=== PATIENT | female | born 1995 | race Caucasian/White ===

== ENCOUNTER 2017-03-28 06:18 | Emergency (ER) | payer OTHER ==
[~2017-03-28] VITALS: Ht 165.1 cm; Wt 86.5 kg
[~2017-03-28 06:18] MED LIST: FERR325T18 PO; IBUP-1222 PO; OXYC-302 PO; PREN1TAB27 PO
[2017-03-28 07:04] VITALS: BP 133/78
== END 2017-03-28 08:57 | disposition home or self-care (01) ==
LOC: ED 08:31
DX: G89.29 Other chronic pain (principal); R51 Headache
CPT/HCPCS: 70450; 99284

== ENCOUNTER 2020-09-25 08:49 | Emergency (ER) | payer OTHER ==
[~2020-09-25] VITALS: Ht 162.6 cm; Wt 108.9 kg
[~2020-09-25 08:49] MED LIST changes: -OXYC-302 PO; +OXYC1TAB14 PO
[2020-09-25] MEDS ORDERED: ONDANSETRON 2MG/ML, 2ML ONE (09:18)
[2020-09-25] MEDS ORDERED: SODIUM CHLORIDE FLUSH 10ML SYR IVF ONE (09:30)
[2020-09-25] MEDS ORDERED: ONDANSETRON 2MG/ML, 2ML IVPush ONE (09:30)
[2020-09-25] MEDS ORDERED: MECLIZINE CHEWABLE 25 MG TAB PO ONE (09:30)
[2020-09-25] MEDS ORDERED: SODIUM CHLORIDE 0.9% 1,000ML IVBOLUS ONE (09:30)
--- NOTE | 2020-09-25 09:33 | NUR ---
First contact with pt. Pt reports waking up this morning with c/o dizziness and palpitations. Pt currently 31 weeks , . Pt denies pain or any issues with at this time. Pt placed in gown and positioned for comfort in bed. Continuous heart, oxygen and BP monitors applied, all safety measures observed.
[2020-09-25] MEDS ORDERED: MECLIZINE CHEWABLE 25 MG TAB ONE (09:52)
--- NOTE | 2020-09-25 10:06 | NUR ---
Pt resting in bed looking at her phone,
--- NOTE | 2020-09-25 10:41 | NUR ---
Pt resting in bed with eyes closed, resp even and unlabored, NADN.
[2020-09-25 11:07] VITALS: BP 103/57
== END 2020-09-25 11:09 | disposition home or self-care (01) ==
LOC: ED 09:41
DX: O26.893 Other specified pregnancy related conditions, third trimester (principal); R42 Dizziness and giddiness; R00.2 Palpitations; R00.0 Tachycardia, unspecified; G43.909 Migraine, unspecified, not intractable, without status migrainosus; Z3A.31 31 weeks gestation of pregnancy
CPT/HCPCS: 93005; 96361; 96374; 99283; J2405; J7030

== ENCOUNTER 2020-10-28 12:58 | Outpatient (CLI) | payer OTHER ==
[~2020-10-28] VITALS: Ht 162.6 cm; Wt 118.0 kg
[2020-10-28] MEDS ORDERED: ACETAMINOPHEN 325 MG TABLET ONE (13:25)
[2020-10-28] MEDS ORDERED: PLEASE ENTER HEIGHT AND WEIGHT MC SCH (13:30)
[2020-10-28] MEDS ORDERED: ACETAMINOPHEN 325 MG TABLET PO PRN (13:30)
[2020-10-28 13:35] LABS: BASOPHILS % (AUTO) 1 % (0-1); EOSINOPHILS % (AUTO) 1 % (1-7); LYMPHOCYTES % (AUTO) 17 % (22-44); MEAN CORPUSCULAR HEMOGLOBIN 30.1 pg (27.0-34.8); MEAN CORPUSCULAR HGB CONC 34.6 g/dL (32.4-35.8); MEAN PLATELET VOLUME 7.7 fL (7.4-10.4); MONOCYTES % (AUTO) 4 % (2-9); NEUTROPHILS % (AUTO) 79 % (42-75); PLATELET COUNT 243 x10^3/uL (130-400); RED BLOOD COUNT 3.73 x10^6/uL (3.82-5.3); RED CELL DISTRIBUTION WIDTH 13.1 % (9.6-15.2)
[2020-10-28 13:47] LABS: ALANINE AMINOTRANSFERASE 15 U/L (12-78); ALBUMIN 2.5 g/dL (3.4-5.0); ANION GAP 6 mmol/L (5-15); CALCIUM 8.6 mg/dL (8.5-10.1); CHLORIDE 108 mmol/L (98-107); CREATININE 0.73 mg/dL (0.55-1.02)
[2020-10-28 13:54] LABS: ALKALINE PHOSPHATASE 112 U/L (45-117); BILIRUBIN,TOTAL 0.4 mg/dL (0.2-1.0); TOTAL PROTEIN 6.1 g/dL (6.4-8.2)
[2020-10-28 14:04] LABS: MICROSCOPIC INDICATED
[2020-10-28 14:14] LABS: CREATININE,URINE RANDOM 59.2 mg/dL
== END 2020-10-28 14:43 | disposition home or self-care (01) ==
LOC: LDOP 12:58
PROVIDERS: ATTEND Obstetrics & Gynecology
DX: O16.3 Unspecified maternal hypertension, third trimester (principal); Z3A.35 35 weeks gestation of pregnancy
CPT/HCPCS: 36415; 59025; 80053; 81001; 82570; 83615; 84156; 84550; 85025

== ENCOUNTER → 2020-11-02 | Outpatient (CLI) | payer OTHER | END | disposition home or self-care (01) | LOC: CFH 08:36 | PROVIDERS: ATTEND Internal Medicine Cardiovascular Disease | DX: O00.01 Abdominal pregnancy with intrauterine pregnancy (principal); R42 Dizziness and giddiness; Z3A.00 Weeks of gestation of pregnancy not specified | CPT/HCPCS: 93306; 93356 ==

== ENCOUNTER 2020-11-05 13:44 | Outpatient (CLI) | payer OTHER ==
[~2020-11-05] VITALS: Ht 162.6 cm; Wt 112.7 kg
[2020-11-05 14:23] VITALS: BP 121/82
[2020-11-05] MEDS ORDERED: BUTALB/APAP/CAFFEINE 50MG/325MG/40MG PO PRN (14:30)
[2020-11-05 14:53] LABS: ALANINE AMINOTRANSFERASE 15 U/L (12-78); ALBUMIN 2.4 g/dL (3.4-5.0); ANION GAP 8 mmol/L (5-15); BASOPHILS % (AUTO) 0 % (0-1); CALCIUM 9.5 mg/dL (8.5-10.1); CHLORIDE 108 mmol/L (98-107); CREATININE 0.78 mg/dL (0.55-1.02); EOSINOPHILS % (AUTO) 0 % (1-7); LYMPHOCYTES % (AUTO) 19 % (22-44); MEAN CORPUSCULAR HEMOGLOBIN 29.5 pg (27.0-34.8); MEAN CORPUSCULAR HGB CONC 34.2 g/dL (32.4-35.8); MEAN PLATELET VOLUME 7.9 fL (7.4-10.4); MONOCYTES % (AUTO) 7 % (2-9); NEUTROPHILS % (AUTO) 74 % (42-75); PLATELET COUNT 255 x10^3/uL (130-400); RED BLOOD COUNT 3.74 x10^6/uL (3.82-5.3); RED CELL DISTRIBUTION WIDTH 13.1 % (9.6-15.2)
[2020-11-05 14:55] LABS: ALKALINE PHOSPHATASE 125 U/L (45-117); BILIRUBIN, DIRECT < 0.1 mg/dL (0.1-0.2); BILIRUBIN,TOTAL 0.3 mg/dL (0.2-1.0); TOTAL PROTEIN 6.2 g/dL (6.4-8.2)
[2020-11-05 15:05] LABS: CREATININE,URINE RANDOM 54.2 mg/dL
[2020-11-05 15:25] LABS: MICROSCOPIC INDICATED
== END 2020-11-05 16:05 | disposition home or self-care (01) ==
LOC: LDOP 13:44
PROVIDERS: ATTEND Obstetrics & Gynecology
DX: O13.3 Gestational [pregnancy-induced] hypertension without significant proteinuria, third trimester (principal); Z3A.36 36 weeks gestation of pregnancy
CPT/HCPCS: 36415; 59025; 80053; 81001; 82248; 82570; 84156; 84550; 85025